=== PATIENT | female | born 1950 | race Caucasian/White ===

== ENCOUNTER 2016-10-06 09:19 | Day surgery (SDC) | payer MEDICARE, MEDICAID ==
[~2016-10-06] VITALS: Ht 160 cm; Wt 76.8 kg
[2016-10-06] VITALS (11 sets, daily range): BP systolic 99–138; BP diastolic 58–89; PULSE 64–96; RESP 14–21; O2SAT 93–100
[~2016-10-06 09:19] MED LIST: ASPI-973 PO; CHOL10008 PO; CITA40TA13 PO; CYCL10TA9 PO; GABA-502 PO; HYDR-4003 PO; HYDR-656 PO; LOVA40TA PO; MULT-1018 PO; OMEP20TA86 PO
[2016-10-06] MEDS ORDERED: Glycopyrrolate 0.2 mg/mL 5 mL Inj ONE (09:20)
[2016-10-06] MEDS ORDERED: Dexamethasone 4 mg/mL Inj ONE (09:20)
[2016-10-06] MEDS ORDERED: Ketamine 10 mg/mL 20 mL Inj ONE (09:20)
[2016-10-06] MEDS ORDERED: Ondansetron 2 mg/mL 2 mL Inj ONE (09:20)
[2016-10-06] MEDS ORDERED: Neostigmine 1 mg/mL 5 mL Inj ONE (09:20)
[2016-10-06] MEDS ORDERED: Rocuronium 10 mg/mL 5 mL Inj ONE (09:20)
[2016-10-06] MEDS ORDERED: Lidocaine PF 1% 30 mL Inj ONE (09:20)
[2016-10-06] MEDS ORDERED: fentaNYL-PF 50 mCg/mL 2 mL Inj ONE ×2 (09:20→12:37)
[2016-10-06] MEDS: Lactated Ringer's 1,000 ML IV SCH ×2 (09:27→13:17)
[2016-10-06] MEDS ORDERED: fentaNYL-PF 50 mCg/mL 2 mL Inj IVPUSH PRN (12:55)
[2016-10-06] MEDS ORDERED: Bupivacaine-MPF 0.5% W/EPI 30 mL Inj INFILTRATE ONE (13:17)
[2016-10-06] MEDS ORDERED: Lactated Ringer's 500 ML IV PRN (14:01)
[2016-10-06] MEDS ORDERED: Lactated Ringer's 1,000 ML IV SCH (14:01)
[2016-10-06] MEDS ORDERED: MetoCLOpramide 5 mg/mL 2 mL Inj IVPUSH PRN (14:05)
[2016-10-06] MEDS ORDERED: Dexamethasone 4 mg/mL Inj IVPUSH PRN (14:05)
[2016-10-06] MEDS ORDERED: Phenylephrine 10,000 mCg/mL Inj IVPUSH PRN (14:05)
[2016-10-06] MEDS ORDERED: Ondansetron 2 mg/mL 2 mL Inj IVPUSH PRN (14:05)
[2016-10-06] MEDS ORDERED: EPHEDrine Sulfate 50 mg/mL Inj IVPUSH PRN (14:05)
--- NOTE | 2016-10-06 14:06 | PCM.HPANE ---
Patient Data Date of Service: Oct 06, 2016 Surgeon Admitting Provider: Attending Provider:Bladimir Sinclair MD Primary Care Physician:Osiel Spaulding MD Other Provider:Raj Laguerre Anesthesia Reason for Visit Chronic Cholecystitis Ht/WT & BMI Height (Feet): 5 Height (Inches): 3 Weight (Kilograms): 76.8 Body Mass Index 30.00 Allergies Coded Allergies: morphine (Verified Allergy, Unknown, itching, 10/05/16) Past Anesthesia History Anesthesia History: Denies:: Abnormal Airway, Anesthesia Reactions (difficult to put to sleep), Difficult Intubation, Fam Anesthesia Reaction, Malignant Hyperthermia Diabetes History Hx Diabetes?: No MRSA MRSA: No Medications Blood Thinner: Aspirin Hypertension Medication: No Home Meds Incl Beta Emely: No Reported Medications Cholecalciferol (Vitamin D3) (Vitamin D3)1,000 Unit Tab.chew1,000 Unit PO DAILY 10/04/16 Omeprazole 20 Mg Tablet.dr40 Mg PO DAILY 10/04/16 Multivitamin (Multi Vitamin Daily)1 Each Tablet1 Each PO DAILY 30 Days Ref 0 10/04/16 Lovastatin 40 Mg Yneimx82 Mg PO HS #30 TABLET Ref 0 10/04/16 hydrOXYzine Hcl (HydrOXYzine Hcl)25 Mg Rbgcbn27 Mg PO TID PRN For Itching Ref 0 10/04/16 Hydrocodone-Acetaminophen 5-325 mg 1 Each Tablet1 Tablet PO Q4H PRN For Pain Ref 0 10/04/16 Gabapentin 300 Mg Phdpyvd822 Mg PO TID Ref 0 10/04/16 Cyclobenzaprine 10 Mg Tablet5-10 Mg PO TID PRN Spasm 10/04/16 Citalopram 40 Mg Ehvdsk92 Mg PO DAILY 30 Days Ref 0 10/04/16 Aspirin 81 Mg Ttptle31 Mg PO DAILY Ref 0 10/04/16 Discontinued Reported Medications Cholecalciferol (Vitamin D3) (Vitamin D)1,000 Unit Capsule1,000 Unit PO DAILY # 1 BOTTLE Ref 0 11/06/15 Omeprazole 40 Mg Capsule.dr40 Mg PO BID Ref 0 11/06/15 Multivitamin (Multi Vitamin Daily)1 Each Tablet1 Each PO DAILY 30 Days Ref 0 11/06/15 Lovastatin 40 Mg Oucsfj16 Mg PO HS #30 TABLET Ref 0 11/06/15 hydrOXYzine Hcl (HydrOXYzine Hcl)25 Mg Pxqimh24 Mg PO TID Ref 0 11/06/15 Hydrocodone-Acetaminophen 10-325 mg 1 Each Tablet1 Tablet PO Q4-6H PRN For Pain Ref 0 11/06/15 Gabapentin 300 Mg Hkhodno930 Mg PO TID Ref 0 11/06/15 Cyclobenzaprine 10 Mg Tablet5-10 Mg PO TID PRN Spasm 11/06/15 Citalopram 40 Mg Rxkepq07 Mg PO DAILY 30 Days Ref 0 11/06/15 Calcium Carb&Cit/Mag12/Vit D3 (Calcium 500 mg Tablet)1 Each Tablet1 Each PO DAILY 11/06/15 History History of ENT Problems?: Yes HEENT History: Positive for:: Dysphagia (c/ dry mouth from medications) Sinus Problem (a little) Denies:: Abnormal Airway Cataracts Difficult Intubation Hearing Problem TMJ Hx of Heart Problems?: Yes Cardiovascular History: Denies:: AICD Atrial Fibrillation Cardiac Surgery Chest Pain Congestive Heart Failure Edema Heart Murmur Hypertension (hyperlipidemia) Irregular Heartbeat Pacemaker Hx of Respiratory Problem?: No Respiratory History: Denies:: Asthma COPD Emphysema Oxygen Administration Pneumonia Tuberculosis Use of C-PAP Machine Hx Neurologic Problems?: Yes Neurological History: Positive for:: Headaches (rare ) Denies:: Alzheimer's Disease CVA Dementia Dizziness Multiple Sclerosis Parkinson's Disease Seizures Hx of GI Problems?: Yes Gastrointestinal History: Positive for:: Gall Bladder Disease (current admission problem) Gastroesphageal Reflux Denies:: Cirrhosis Diverticulitis Gastrointestinal Bleeding Heartburn Hepatitis Hiatal Hernia Rectal Bleeding Hx of Problems?: No Genitourinary History: Denies:: Kidney Stones Urinary Tract Infection Female Hx: Denies:: Currently Problems with Breasts? Skin History: Denies:: History Skin Disorders? Pressure Ulcers Hx Musculoskeletal Problems?: Yes Musculoskeletal History: Positive for:: Back Injury (low back pain) Musculoskeletal Trauma (LT KNEE MEDIAL MENISCUS TEAR=CURRENT PROBLEM) Denies:: Degenerative Joint Joint Replacement Osteoarthritis Systemic Lupus Hx of Psycho/Social Problems?: Yes Psycho Social History: Positive for:: Anxiety Bipolar Disorder (II) Hx Depression Suicide Attempt (X2 (1999,2001) PRESCRIPTION DRUG OD) Hx Surgeries?: Yes (Carpal tunnel release, tonsils, left knee scope) Hx Any Other Health Problems?: Yes Other History: Denies:: Cancer Endocrine Disease Hospitalization Thyroid Disease History Blood Transfusions: Denies:: Blood Transfusions Hx Diabetes: No Hx Alcohol Use: No (past hx of use)Hx Substance Use: No Smoking Status: Current Every Day Smoker Former Smoker Light Tobacco Smoker Have You Smoked inLast 12 mo: Yes Stop/Bang S-Snoring: Do You Snore Loudly: No T-Tired: feel tired, fatigued: Yes O-Obsered: Observed not breath: No P-Blood Pressure: treated: No B- Body Mass Index > 35 kg/m2: No A- Age over 50: Yes N- Neck Large Circumference: No G- Gender Male: No IMANI Total Score: 2 IMANI Risk Assessment: Low Risk, <3 Yes Risk Assessment Category Category 1A: Patient has history of documented sleep apnea, and HAS NOT received any narcotic, sedative or anesthesia administration during this stay. Category 1B: Patient has history of documented sleep apnea, and HAS received any narcotic , sedative or anesthesia administration during this stay Category 2: Patient has SUSPECTED Obstructive Sleep Apnea, and HAS received any narcotic , sedative or anesthesia administration during this stay. Category 3: Patient has SUSPECTED Obstructive Sleep Apnea and HAS NOT received narcotic, sedative or anesthesia administration during this stay. Category 4: Outpatient in Procedural Areas with known sleep apnea or who screen positive for High Risk via the STOP/BANG questionnaire. Exam Exam Vital Signs Vital Signs Date Time Temp Pulse Resp B/P Pulse Ox O2 Delivery O2 Flow Rate FiO2 10/06/16 09:39 36.4 93 20 123/71 97 Room Air General Appearance: Oriented X3 HEENT/AIRWAY: MP 2 Lungs: Clear to Auscultation Heart: Exam Unremarkable Meds/Labs/Diagnostics Admission Meds Current Medications Lactated Ringer's (Lr) 1,000 ml @ 120 mls/hr Q8H20M IV Last administered on 13:17; Start 10/06/16 at 05:00; Stop 10/06/16 at 13:19; Status DC Gabapentin (Neurontin) 600 mg PREOP ONCE PO Last administered on 10/06/16 09: 52; Start 10/06/16 at 06:00; Stop 10/06/16 at 06:01; Status DC Celecoxib (CeleBREX) 200 mg PREOP ONCE PO Last administered on 10/06/16 09:52 ; Start 10/06/16 at 06:00; Stop 10/06/16 at 06:01; Status DC Scopolamine (Transderm-Scop Patch) 1.5 mg ONCE ONCE TOPICAL Last administered on 10/06/16 09:52; Start 10/06/16 at 05:00; Stop 10/06/16 at 05:01; Status DC Acetaminophen (Tylenol) 650 mg PREOP ONCE PO Last administered on 10/06/16 09: 52; Start 10/06/16 at 06:00; Stop 10/06/16 at 06:01; Status DC Fentanyl Citrate (Sublimaze Inj) 100 mcg STK-MED ONCE .ROUTE Last administered on 10/06/16 12:42; Start 10/06/16 at 12:37; Stop 10/06/16 at 12:39; Status DC Bupivacaine HCl/ Epinephrine Bitart (Sensorcaine-MPF 0.5% W/EPI Inj) 60 ml STK- MED ONCE INFILTRATE Last administered on 10/06/16 13:17; Start 10/06/16 at 13:17 ; Stop 10/06/16 at 13:33; Status DC Plan Impression Patient chart reviewed, patient interviewed and anesthestic plan with risks, benefits, and alternatives discussed, and informed consent obtained. NPO Status: 10/06/16 water 30 ASA Physical Status: ASA2 Mod Systemic Disease Anesthetic Plan: GA Bene/Risks/Altern/Consents: Yes HP Complete Prior to Induction: Yes Andi Domingo MD Oct 06, 2016 14:06
[2016-10-06] MEDS: fentaNYL-PF 50 mCg/mL 2 mL Inj IVPUSH PRN ×3 (14:22→15:09)
[2016-10-06] MEDS ORDERED: HYDROmorphone 1 mg/mL Inj ONE (14:33)
[2016-10-06] MEDS: HYDROmorphone 1 mg/mL Inj IVPUSH PRN ×2 (14:37→14:54)
--- NOTE | 2016-10-06 14:41 | OP ---
[address] [address] OPERATIVE REPORT PATIENT: GURVINDER HAYDEN : 1950 MR#: [id number] ADMIT: 10/06/2016 JOB ID: [id number] DATE OF SURGERY: 10/06/2016 ANESTHESIA: General. PREOPERATIVE DIAGNOSIS(ES): Symptomatic cholelithiasis. POSTOPERATIVE DIAGNOSIS(ES): Symptomatic cholelithiasis. OPERATIVE PROCEDURE: Laparoscopic cholecystectomy. SURGEON: Bladimir Sinclair MD. CEMETERY MANAGER: Ben Yan PA-C (the gallery assistant was required for the safely and timely completion of the case) and SHAHZAD Mariano. COMPLICATIONS: None. ESTIMATED BLOOD LOSS: Minimal. CONDITION: Satisfactory. SPECIMEN: Gallbladder. FINDINGS: The gallbladder did not appear significantly inflamed, although there were dense adhesions. INDICATION/SIGNIFICANT HISTORY: The patient is a 66-year-old woman who for three or four years had been experiencing postprandial episodic right upper quadrant abdominal pain. She had a previous ultrasound that demonstrated cholelithiasis. Over the past six weeks, the pain had become constant. She was referred to me and after discussion, we agreed to proceed with cholecystectomy. OPERATIVE TECHNIQUE: The patient was taken into the operating room and placed in the supine position. General anesthesia administered. The abdomen was prepped and draped in a standard surgical fashion, and a procedural pause was performed. Entry was gained to the abdomen through a supraumbilical incision using a 10 mm Optiview trocar. Pneumoperitoneum was achieved without complication. Local anesthetic was injected, followed by insertion of 5 mm ports in the subxiphoid, as well as two in the right upper quadrant. The gallbladder was grasped and retracted cephalad. There were some dense adhesions to the omentum and duodenum which were carefully taken down. Dissection was then begun to identify the cystic duct and cystic artery. The cystic duct was easily dissected free. Cystic artery was quite large and ran up along the gallbladder, so first I was not sure whether that was the aberrant artery that was going to go back into the liver or it was indeed the cystic artery. There was a small branch that was coming off that, so I took that and then placed three clips on the cystic duct and then transected it sharply. Soon, it became apparent that the artery was, in fact, the cystic artery that was just inserted very high on the gallbladder. Clip was placed on this. The remainder of the dissection of the gallbladder off the cystic plate was then completed and the gallbladder placed in the bag and brought out through the umbilical incision. The umbilical fascia then closed with 0 PDS suture. The lateral ports removed under direct visualization, followed by release of pneumoperitoneum and removal of the remaining port. Skin was closed using 4-0 Monocryl. The entire procedure was well tolerated without complication.
[2016-10-06] MEDS ORDERED: oxyCODONE-Acetamin 5-325 mg Tablet PO PRN (15:05)
--- NOTE | 2016-10-06 15:29 | PCM.ANEP1 ---
Post Anesthesia Phase 1 PACU Phase 1 Assessment Date of Service: Oct 06, 2016 Vital Signs Vital Signs Date Time Temp Pulse Resp B/P Pulse Ox O2 Delivery O2 Flow Rate FiO2 10/06/16 15:00 88 20 109/59 95 Room Air 10/06/16 14:45 36.5 87 15 124/59 99 Room Air 10/06/16 14:40 89 20 126/66 100 Simple Mask 8 10/06/16 14:35 92 21 111/65 100 Simple Mask 8 10/06/16 14:30 36.4 96 15 138/63 98 Simple Mask 8 10/06/16 09:39 36.4 93 20 123/71 97 Room Air Anesthetic Administered: GA Level of Alertness: Awake, talking Pain: Yes Nausea or Vomiting: No Oxygen Delivery: Room Air Lungs: Clear to Auscultation Andi Domingo MD Oct 06, 2016 15:29
--- NOTE | 2016-10-06 15:32 | PCM.ANEP2 ---
Post Anesthesia Evaluation ASA/CMS Post Anesthesia VS in Patient's Normal Range?: Yes Resp Stable; Airway Patent?: Yes CV Function & Hydration Stable: Yes Mental Status Recovered?: Yes Pain control Satisfactory?: Yes N/V Control Satisfactory?: Yes Andi Domingo MD Oct 06, 2016 15:31
--- NOTE | 2016-10-10 13:41 | PATH ---
SURGICAL PATHOLOGY Attending Physician:Bladimir Sinclair MD CASE STATUS: Signed Out PATIENT NAME: GURVINDER HAYDEN PID: [id number] : 1950 DATE COLLECTED:10/06/2016 22:24 SPECIMEN: Gallbladder CLINICAL HISTORY: CHOLELITHIASIS 1). GALLBLADDER FINAL DIAGNOSIS: 1.GALLBLADDER: ACALCULOUS CHRONIC CHOLECYSTITIS. ICD10 CODE K81.1 GROSS DESCRIPTION: The specimen is received in one formalin filled container labeled with the patient's name, sublabeled "gallbladder" and consists of a slightly opened 6.5 x 2.5 x 1.2 CM gallbladder. The serosa is smooth. The wall is 0.2-0.4 CM in thickness. The mucosa is a dark green in color. The lumen contains a dark green mucoid material. No calculus are noted. Fibrous in other sections are submitted in one cassette. 10/07/2016 DAC MICRO DESCRIPTION: See diagnosis. ICD-9 CODES: CPT CODES: 1: 47267 Electronically Signed Out Reginaldo Morales MD [facility] Pathology [facility] [address], [place] [address] Technical component performed at [facility], [facility] [address], [place], [address]
== END 2016-10-06 23:59 | disposition home or self-care (01) ==
LOC: SAS 09:19
PROVIDERS: ATTEND General Practice
DX: K80.10 Calculus of gallbladder with chronic cholecystitis without obstruction (principal); I10 Essential (primary) hypertension; E78.5 Hyperlipidemia, unspecified; K21.9 Gastro-esophageal reflux disease without esophagitis; F17.210 Nicotine dependence, cigarettes, uncomplicated; F31.81 Bipolar II disorder; F41.9 Anxiety disorder, unspecified; Z79.82 Long term (current) use of aspirin
CPT/HCPCS: 47562; J1100; J1170; J2405; J2710; J3010; J7120

== ENCOUNTER 2016-12-26 11:54 | Emergency (ER) | payer MEDICARE, MEDICAID ==
[~2016-12-26] VITALS: Ht 160 cm; Wt 78.6 kg
--- NOTE | 2016-12-26 11:55 | ED.REPORT ---
HPI-Trauma Minor / Fall Date of Service December 26, 2016 ED Provider: Dr. Childress Pt is a 66 y/o female w/ a hx of chronic pain with narcotic dependence, presenting to the ED via EMS c/o chest pain secondary to mechanical ground level fall which occurred 5 days ago. The patient fell from ground level into her countertop with impact of the chest. The patient went to [facility] 3 days after the incident at which time she reports imaging was normal. Pain is significantly exacerbated by twisting, moving the arms, and deep breathing. She takes narcotic medication daily for chronic pain. Pt denies abdominal pain, nausea, vomiting, SOB. She states that the last time she was in the hospital for cholecystitis she was given Dilaudid x3 and Fentanyl x2 with no change in pain. Nursing Notes Stated Complaint: GL FALL Nursing Notes Reviewed: Yes Allergies: Coded Allergies: No Known Allergies (Unverified , 12/26/16) Scheduled Aspirin (Aspirin) 81 Mg Tablet 81 MG PO DAILY Cholecalciferol (Vitamin D3) (Vitamin D3) 1,000 Unit Tab.chew 1,000 UNIT PO DAILY Citalopram (Citalopram) 40 Mg Tablet 40 MG PO DAILY Gabapentin (Gabapentin) 300 Mg Capsule 900 MG PO TID Lovastatin (Lovastatin) 40 Mg Tablet 40 MG PO HS Multivitamin (Multi Vitamin Daily) 1 Each Tablet 1 EACH PO DAILY Omeprazole (Omeprazole) 20 Mg Tablet.dr 40 MG PO DAILY Scheduled PRN Cyclobenzaprine (Cyclobenzaprine) 10 Mg Tablet 5-10 MG PO TID PRN PRN Spasm Hydrocodone-Acetaminophen 5-325 mg (Hydrocodone-Acetaminophen 5-325 mg) 1 Each Tablet 1 TABLET PO Q4H PRN PRN For Pain hydrOXYzine Hcl (HydrOXYzine Hcl) 25 Mg Tablet 25 MG PO TID PRN PRN For Itching oxyCODONE-Acetaminophen 5-325 mg (oxyCODONE-Acetaminophen 5-325 mg) 1 Each Tablet 2 TAB PO Q6H PRN PRN For Pain General Time Seen by MD: 11:55 Chief Complaint Fall Hx Obtained From: Patient, EMS Arrived By: Ambulance Onset Occurred: 5 days ago Symptom Duration: Since onset Location: Chest Quality: Painful Severity: Current: Moderate Severity: Maximum: Moderate Recent Healthcare: Recent doctor visit, Recent testing, Previous diagnosis, Prior workup Past Medical History Past Medical History Low back pain on chronic narcotics Left knee medial meniscus tear GERD Anxiety Bipolar (II) Depression Suicide attempt x2 by rx drug OD Past Surgical History Cholecystectomy Carpal tunnel Tonsillectomy Left knee scope Smoking History Current Every Day Smoker Social History Drug Use: Denies drug use Ambulatory Status Independent Review of Systems Constitutional: Denies: Chills, Fever Respiratory: Reports: Pleuritic pain, Denies: Non-productive cough, Shortness of breath Neurologic: Denies: Headache Complete sys rev & neg: except as marked. Cardiovascular: Reports: Chest pain GI: Denies: Abdominal pain, Nausea, Vomiting Physical Exam Initial Vital Signs Vital Signs (First) Date Time Temp Pulse Resp B/P Pulse Ox O2 Delivery O2 Flow Rate FiO2 12/26/16 12:01 37.1 118 20 148/86 97 Room Air Initial VS: Reviewed Head / Eyes: Atraumatic, Normocephalic, PERRL ENT: Mucous membranes moist, Conjunctiva normal, No scleral icterus Cardiovascular: Regular rate & rhythm, Heart sounds normal, Intact distal pulses Abdomen / GI: Soft, Non-tender Extremities: Vascular intact, Neuro intact, No swelling, No tenderness Skin: Warm, Dry, No cyanosis Neurologic: Alert, Oriented, Nonfocal Psychiatric: Mood/affect normal, Behavior normal, Normal thought content General/Constitutional: Awake, Alert, Cooperative, Not toxic appearing Neck: Atraumatic, Supple, No meningismus, Full range of motion Respiratory / Chest: Breath sounds NL, Breath sounds = bilat, No respiratory distress, No rales, No rhonchi, No wheezing, No retractions, No stridor, No chest wall deformity Exquisite focal left anterior chest wall tenderness, reproducible with palpation and movement of extremities Interpretation & Diagnostics ECG Interpretation Time: 13:21 Interpreted by: ED physician Normal ECG Interpretation: Normal ECG w/ rate of... (90), Normal rate, Normal sinus rhythm, No acute ischemic changes, Normal QRS, Normal axis, Normal intervals, Adequate tracing X-Ray Chest Interpretation Chest Xray Interpretation: IMPRESSION: Suspect superior sternal fracture slightly displaced posteriorly, and given the presence of a anterior sternal cortical irregularity not present in 2015 at the same site. This is located an estimated 1.5 cm below the sternomanubrial junction seen on the lateral view of the chest only. Dictated by: Braulio Butts M.D. on 12/26/2016 at 13:06 Approved by: Braulio Butts M.D. on 12/26/2016 at 13:09 View: Portable, AP & lat Interpretation / Wet Read by: Interpret - Radiologist X-Ray Interpretation Xray Interpretation: IMPRESSION: No trauma thumb, no pneumothorax seen on the left. CT scanning may allow detection of sternal injuries are not identifiable by plain films and could be obtained depending on the clinical status. Dictated by: Braulio Butts M.D. on 12/26/2016 at 13:04 Approved by: Braulio Butts M.D. on 12/26/2016 at 13:05 Study Performed: Left ribs, 2 views Interpretation / Wet Read by: Interpret - Radiologist Re-Eval/Medical Decision Med Decision/Clinical Course Minimally displaced sternal fracture that is several days out associated with minor trauma with stable vital signs and normal EKG, significant pain relief with Percocet. Patient is stable for discharge. Return and follow-up precautions given. Source of Hx: Old records Re-Evaluation/Progress : Time of Eval: 14:27 Patient Status: Condition improved, Moderate relief, Pain improved Re-Evaluation/Progress Note: Pt rechecked. Informed pt of plan for treatment. Pt understands and agrees with plan for treatment. F/U instructions and RTER warnings given. All questions addressed. Counseled Regarding: Diagnosis, Lab results, Need for follow-up, When/why to return to ED Discharge & Departure Impression: Primary Impression: Sternal fracture Encounter type: initial encounter Sternal location: unspecified Fracture type: closed Qualified Code: S22.20XA - Unspecified fracture of sternum, initial encounter for closed fracture Disposition: Home Discharge Condition All VS Reviewed: Yes Condition: Stable Additional Instructions: It appears that you fractured your sternum. You should rest, use ice packs, and avoid physical activity which aggravates your pain. Call your regular doctor in the morning for close follow-up. Use oxycodone for pain. Return to the ER if you severe uncontrolled pain, trouble breathing, fever, or any other concerns. Scribe Attestation Portions of this note were transcribed by Danilo Hopson. I, Dr. Childress personally performed the history, physical exam and medical decision-making; I reviewed and confirmed the accuracy of the information in the transcribed note. Signed by Nano De La Cruz, 12/26/16 - 1250 Carlos Childress DO December 26, 2016 11:55 DANILO HOPSON December 26, 2016 12:06
[2016-12-26 12:01] VITALS: BP 148/86; PULSE 118; RESP 20; O2SAT 97
[2016-12-26] MEDS ORDERED: Ketorolac 15 mg/mL Inj IM ONE (12:05)
--- NOTE | 2016-12-26 13:07 | DRSVH ---
PROCEDURE: X-RAY LEFT RIBS, TWO VIEWS ([id number]) INDICATIONS: left chest wall pain post fall. TECHNIQUE: 2 views of the anterior medial ribs were acquired. COMPARISON: None. FINDINGS: Surgical changes and devices: None. Bones and chest wall: No fractures or dislocations. No suspicious bony lesions. Overlying soft tis sues appear unremarkable. Lungs and pleura: The visualized lung appears clear. No pleural effusions or pneumothorax are visib le. IMPRESSION: No trauma thumb, no pneumothorax seen on the left. CT scanning may allow detection of st ernal injuries are not identifiable by plain films and could be obtained depending on the clinical st atus. Dictated by: Braulio Butts M.D. on 12/26/2016 at 13:04 Approved by: Braulio Butts M.D. on 12/26/2016 at 13:05
--- NOTE | 2016-12-26 13:11 | DRSVH ---
PROCEDURE: X-RAY CHEST, TWO VIEWS ([id number]) INDICATIONS: chest wall pain post fall TECHNIQUE: 2 views of the chest were acquired. COMPARISON: [facility], , CHEST 2VW, 10/30/2014, 10:49. FINDINGS: Surgical changes and devices: None. Lungs and pleura: No pleural effusions or pneumothorax. Lungs are clear. Mediastinum: Mediastinal contours are normal. Heart size is normal. Bones and chest wall: There is a suspicious change in the anterior cortical contour of the upper ster num, near the sternomanubrial junction anteriorly, in an area without cortical discontinuity on the c omparison lateral view of the chest 10/30/14.. Soft tissues appear unremarkable. IMPRESSION: Suspect superior sternal fracture slightly displaced posteriorly, and given the presence of a anterior sternal cortical irregularity not present in 2014 at the same site. This is located an estimated 1.5 cm below the sternomanubrial junction seen on the lateral view of the chest only. Dictated by: Braulio Butts M.D. on 12/26/2016 at 13:06 Approved by: Braulio Butts M.D. on 12/26/2016 at 13:09
[2016-12-26] MEDS ORDERED: oxyCODONE-Acetamin 5-325 mg Tablet PO ONE (13:45)
[2016-12-26 13:57] VITALS: BP 120/82; PULSE 96; RESP 18; O2SAT 98
[2016-12-26] MEDS ORDERED: OXYC1TAB24 PO (14:24)
[2016-12-26 14:40] VITALS: BP 120/82; PULSE 96; RESP 18; O2SAT 98
== END 2016-12-26 14:41 | disposition home or self-care (01) ==
LOC: EDUNIT# 11:54 → SED 11:54
DX: S22.22XA Fracture of body of sternum, initial encounter for closed fracture (principal); W18.09XA Striking against other object with subsequent fall, initial encounter; Y93.89 Activity, other specified; Y92.019 Unspecified place in single-family (private) house as the place of occurrence of the external cause; Y99.8 Other external cause status; G89.29 Other chronic pain; K21.9 Gastro-esophageal reflux disease without esophagitis; Z79.82 Long term (current) use of aspirin; F17.200 Nicotine dependence, unspecified, uncomplicated
CPT/HCPCS: 71020; 71100; 93005; 96372; 99284; J1885; J3360